=== PATIENT | male | born 2000 ===

== ENCOUNTER 2024-12-30 08:36 | Outpatient (REF) | payer MEDICAID, SELFPAY ==
[2024-12-30 21:29] LABS: HCT 44.5 % (40.0-50.0); HGB 14.8 g/dL (13.5-17.5); MCH 29.5 pg (27.0-33.0); MCHC 33.3 % (32.0-36.0); MCV 89 fL (80-95); MPV 10.4 fL (8.0-11.0); Platelet Count 245 10^3/uL (130-400); RBC 5.02 10^6/uL (4.36-5.78); RDW 12.3 % (11.8-14.1); RDW-SD 39.6 fL; WBC 5.35 10^3/uL (4.4-10.8)
[2024-12-30 21:57] LABS: ALT 74 U/L (16-63); AST 27 U/L (15-37); Albumin 4.8 g/dL (3.4-5.0); Alkaline Phosphatase 49 U/L (46-116); Anion Gap 11.2 mmol/L (3-11); BUN 16 mg/dL (7-18); CO2 28.8 mmol/L (21.0-32.0); CREATININE 1.2 mg/dL (0.70-1.30); Calcium 9.8 mg/dL (8.5-10.1); Calculated LDL 126 mg/dL (<100); Chloride 104 mmol/L (98-107); Cholesterol 198 mg/dL (<200); Estimated GFR 85.53 (mL/min/1.73m2); Glucose 85 mg/dL (74-106); HDL Cholesterol 54 mg/dL (>or=40); Potassium 3.8 mmol/L (3.5-5.1); Sodium 144 mmol/L (136-145); TSH 2.43 uIU/mL (0.36-3.74); Total Protein 7.9 g/dL (6.4-8.2); Triglyceride 91 mg/dL (<150)
[2025-01-03 17:48] LABS: Hepatitis Be Antigen Negative (Negative)
== END 2024-12-30 08:37 | disposition home or self-care (01) ==
LOC: NCHCN 08:36
PROVIDERS: Visit Provider Physician Assistant
DX: Z13.220 Encounter for screening for lipoid disorders (principal); Z13.6 Encounter for screening for cardiovascular disorders
CPT/HCPCS: 80053; 80061; 85027; 84443; 87350